=== PATIENT | male | born 1940 | race Asian ===

== ENCOUNTER → 2024-01-30 | Outpatient (REF) | payer OTHER | LOC: M SFHCPLAZ 21:48 | DX: E11.69 Type 2 diabetes mellitus with other specified complication (principal); Z86.39 Personal history of other endocrine, nutritional and metabolic disease; N18.32 Chronic kidney disease, stage 3b; E78.5 Hyperlipidemia, unspecified ==

== ENCOUNTER → 2024-01-31 | Outpatient (CLI) | payer OTHER ==
[2024-01-31 09:25] LABS: BASO # 0.1 10^3/uL (0.0-0.2); BASO % 0.5 % (0.0-1.0); EOS # 0.1 10^3/uL (0.0-0.5); EOS % 1.4 % (0.0-3.0); HEMATOCRIT 35.6 % (42.0-52.0); HEMOGLOBIN 11.1 g/dl (13.5-17.5); LYMPH # 2.5 10^3/uL (1.5-5.0); LYMPH % 26.9 % (24.0-44.0); MEAN CORPUSCULAR HEMOGLOBIN 30.2 pg (27.0-33.0); MEAN CORPUSCULAR HGB CONC 31.2 g/dl (32.0-36.5); MONO # 0.8 10^3/uL (0.0-0.8); MONO % 8.9 % (2.0-8.0); NEUTROPHILS # 5.6 10^3/uL (1.5-8.5); NEUTROPHILS % 61.3 % (36.0-66.0); PLATELET COUNT, AUTOMATED 363 10^3/uL (150-450); RED BLOOD COUNT 3.67 10^6/uL (4.30-6.10); WHITE BLOOD COUNT 9.2 10^3/uL (4.0-10.0)
[2024-01-31 09:51] LABS: ALBUMIN 2.8 G/DL (3.2-5.2); BILIRUBIN,TOTAL 0.5 MG/DL (0.3-1.2); CALCIUM LEVEL 9.7 MG/DL (8.3-10.6); CHOLESTEROL RISK RATIO 3.26 (<5); CREATININE FOR GFR 1.34 MG/DL (0.70-1.30); GLOMERULAR FILTRATION RATE 53.9 (>35); HDL CHOLESTEROL 41.1 MG/DL (>40); LDL CHOLESTEROL 68.9 MG/DL (<100); NON-HDL-C 92.9 MG/DL; POTASSIUM SERUM 4.7 MMOL/L (3.5-5.1); TOTAL PROTEIN 6.8 G/DL (5.7-8.2)
[2024-01-31 10:03] LABS: HEMOGLOBIN A1c 6.4 % (4.0-6.0)
== END ==
LOC: M LAB 08:38
DX: E11.69 Type 2 diabetes mellitus with other specified complication (principal); E78.5 Hyperlipidemia, unspecified; N18.32 Chronic kidney disease, stage 3b; Z86.39 Personal history of other endocrine, nutritional and metabolic disease

== ENCOUNTER → 2024-02-27 | Outpatient (CLI) | payer OTHER ==
[~2024-02-27] MED LIST: AMOX875T2 PO; ATOR40TA75 PO; BETA5OI TOP; CLAR10CA3 PO; DEXL60CA13; DICL1PAT6; FINA5TAB2; FINA5TAB2 PO; FLOM0.4C39 PO; FURO20TA2 PO; ISOVUE-300 61% 100ML VIAL As Ordered ONE; LIDOCAINE 1% MDV 20ML VIAL As Ordered ONE; LISI5TAB11 PO; METF500T13 PO; METO1TAB32 PO; MIDAZOLAM INJ 2MG/2ML VIAL As Ordered ONE; NS 1,000 ML IV SCH; THERTAB52 PO; TREL1AER; URSO300C3 PO; VELT1POW PO; VENTAER; ZITHTAB PO; ZYRTTAB8 PO; ceFAZolin 2 GM/D5W 50 ML IV BAG As Ordered ONE; ceFAZolin SOD 2 GM in IV 1 EA IV ONE; fentaNYL 100 MCG/2 ML INJECTION As Ordered ONE
[2024-02-27 12:20] VITALS: TEMP 97.1
[2024-02-27 14:45] VITALS: BP 125/58; O2SAT 96
== END ==
LOC: M IRPRO 12:04
PROVIDERS: ATTEND Specialist
DX: C34.92 Malignant neoplasm of unspecified part of left bronchus or lung (principal)
CPT/HCPCS: 36561; 99152; 99153; C1894; J0690; J1642; J2250; J3010; Q9967

== ENCOUNTER 2024-02-29 12:45 | Emergency (ER) | payer OTHER ==
[~2024-02-29] VITALS: Ht 157.5 cm; Wt 73.0 kg
[~2024-02-29 12:45] MED LIST changes: -AMOX875T2 PO; -ISOVUE-300 61% 100ML VIAL As Ordered ONE; -LIDOCAINE 1% MDV 20ML VIAL As Ordered ONE; -MIDAZOLAM INJ 2MG/2ML VIAL As Ordered ONE; -NS 1,000 ML IV SCH; -ZITHTAB PO; -ceFAZolin 2 GM/D5W 50 ML IV BAG As Ordered ONE; -ceFAZolin SOD 2 GM in IV 1 EA IV ONE; -fentaNYL 100 MCG/2 ML INJECTION As Ordered ONE
[2024-02-29] MEDS: ACETAMINOPHEN 500 MG TAB PO ONE (14:12)
[2024-02-29 14:31] LABS: BASO % 0.4 % (0.0-1.0); EOS # 0.1 10^3/uL (0.0-0.5); HEMATOCRIT 35.8 % (42.0-52.0); HEMOGLOBIN 11.1 g/dl (13.5-17.5); LYMPH # 2.1 10^3/uL (1.5-5.0); MEAN CORPUSCULAR HEMOGLOBIN 30.3 pg (27.0-33.0); MEAN CORPUSCULAR VOLUME 97.8 fl (80.0-96.0); MONO # 0.7 10^3/uL (0.0-0.8); MONO % 9.5 % (2.0-8.0); NEUTROPHILS # 3.9 10^3/uL (1.5-8.5); NEUTROPHILS % 57.7 % (36.0-66.0); PLATELET COUNT, AUTOMATED 194 10^3/uL (150-450); RED BLOOD COUNT 3.66 10^6/uL (4.30-6.10); WHITE BLOOD COUNT 6.8 10^3/uL (4.0-10.0)
[2024-02-29 14:50] LABS: BLOOD UREA NITROGEN 14 MG/DL (9-23); CALCIUM LEVEL 8.9 MG/DL (8.3-10.6); CARBON DIOXIDE LEVEL 29 MMOL/L (20-31); CHLORIDE LEVEL 109 MMOL/L (98-107); CREATININE FOR GFR 1.07 MG/DL (0.70-1.30); GLOMERULAR FILTRATION RATE > 60.0 (>35); GLUCOSE, FASTING 157 MG/DL (74-106); POTASSIUM SERUM 5.3 MMOL/L (3.5-5.1); SODIUM LEVEL 141 MMOL/L (136-145)
[2024-02-29] MEDS ORDERED: AMOX875T2 PO (16:38)
[2024-02-29] MEDS ORDERED: ZITHTAB PO (16:38)
[2024-02-29 17:00] VITALS: BP 123/70; TEMP 96.8; O2SAT 94
== END 2024-02-29 17:02 | disposition home or self-care (01) ==
LOC: M ED 12:45
DX: J18.9 Pneumonia, unspecified organism (principal); G89.18 Other acute postprocedural pain; E87.5 Hyperkalemia; E11.9 Type 2 diabetes mellitus without complications; I10 Essential (primary) hypertension; C34.90 Malignant neoplasm of unspecified part of unspecified bronchus or lung; Z79.52 Long term (current) use of systemic steroids; Z79.2 Long term (current) use of antibiotics; Z79.02 Long term (current) use of antithrombotics/antiplatelets; Z79.4 Long term (current) use of insulin; Z79.899 Other long term (current) drug therapy

== ENCOUNTER → 2024-03-04 | Outpatient (POV) | payer OTHER ==
[~2024-03-04] VITALS: Ht 157.5 cm; Wt 68.1 kg
[~2024-03-04] MED LIST changes: +AMBI5TAB PO; +AMOX875T2 PO; +GABA-284 PO; +HYDR-643; +IBUP200C89 PO; +LIDO30CR18 TOP; +ONDA-284 PO; +PROC10TA5 PO; +ZITHTAB PO
[2024-03-04 16:13] VITALS: BP 129/68; O2SAT 98
== END ==
LOC: M IRPOV 16:04
PROVIDERS: ATTEND Radiology Diagnostic Radiology
DX: Z45.1 Encounter for adjustment and management of infusion pump (principal); C34.90 Malignant neoplasm of unspecified part of unspecified bronchus or lung; Z79.84 Long term (current) use of oral hypoglycemic drugs; Z79.899 Other long term (current) drug therapy; Z88.8 Allergy status to other drugs, medicaments and biological substances

== ENCOUNTER → 2024-03-10 | Outpatient (CLI) | payer OTHER ==
[~2024-03-10] MED LIST changes: -AMBI5TAB PO; -GABA-284 PO; -HYDR-643; -IBUP200C89 PO; +ISOVUE-370 76% 100ML VIAL As Ordered ONE; -LIDO30CR18 TOP; -ONDA-284 PO; -PROC10TA5 PO
== END ==
LOC: M RAD 13:29
PROVIDERS: ATTEND Specialist
DX: C34.90 Malignant neoplasm of unspecified part of unspecified bronchus or lung (principal); Z90.2 Acquired absence of lung [part of]
CPT/HCPCS: 71260; Q9967

== ENCOUNTER → 2024-04-02 | Outpatient (REF) | payer OTHER ==
[~2024-04-02] MED LIST changes: +HYDR-643; -ISOVUE-370 76% 100ML VIAL As Ordered ONE; +LIDO30CR18 TOP; +ONDA-284 PO; +PROC10TA5 PO
== END ==
LOC: M SFHCPLAZ 13:08
PROVIDERS: ATTEND Family Medicine
DX: L57.0 Actinic keratosis (principal)

== ENCOUNTER → 2024-04-14 | Outpatient (CLI) | payer OTHER | LOC: M RAD 09:39 | PROVIDERS: ATTEND Specialist | DX: C34.90 Malignant neoplasm of unspecified part of unspecified bronchus or lung (principal) | CPT/HCPCS: 78306; A9503 ==

== ENCOUNTER → 2024-05-08 | Outpatient (CLI) | payer OTHER, MEDICAID ==
[~2024-05-08] VITALS: Ht 160 cm; Wt 74.7 kg
[~2024-05-08] MED LIST changes: +AMBI5TAB PO; +GABA-284 PO; +IBUP200C89 PO; +MIRT1TAB16 PO
[2024-05-08 13:28] VITALS: BP 131/74; O2SAT 95
== END ==
LOC: M PAL 12:54
PROVIDERS: ATTEND Family Medicine
DX: Z51.5 Encounter for palliative care (principal); C34.31 Malignant neoplasm of lower lobe, right bronchus or lung; R52 Pain, unspecified; R11.0 Nausea; Z79.84 Long term (current) use of oral hypoglycemic drugs; Z79.899 Other long term (current) drug therapy; Z79.51 Long term (current) use of inhaled steroids; Z92.21 Personal history of antineoplastic chemotherapy

== ENCOUNTER 2024-05-19 15:40 | Emergency (ER) | payer OTHER, MEDICAID ==
[~2024-05-19] VITALS: Ht 157.5 cm; Wt 76.8 kg
[~2024-05-19 15:40] MED LIST changes: +GABA-1171 PO
[2024-05-19 16:55] LABS: BASO % 0.2 % (0.0-1.0); HEMATOCRIT 30.6 % (42.0-52.0); HEMOGLOBIN 9.7 g/dl (13.5-17.5); LYMPH % 6.5 % (24.0-44.0); MEAN CORPUSCULAR HEMOGLOBIN 30.4 pg (27.0-33.0); MEAN CORPUSCULAR HGB CONC 31.7 g/dl (32.0-36.5); MEAN CORPUSCULAR VOLUME 95.9 fl (80.0-96.0); MONO # 0.9 10^3/uL (0.0-0.8); MONO % 5.9 % (2.0-8.0); NEUTROPHILS # 12.5 10^3/uL (1.5-8.5); NEUTROPHILS % 85.2 % (36.0-66.0); PLATELET COUNT, AUTOMATED 168 10^3/uL (150-450); RED BLOOD COUNT 3.19 10^6/uL (4.30-6.10); WHITE BLOOD COUNT 14.7 10^3/uL (4.0-10.0)
[2024-05-19 17:11] LABS: INR 0.91; PARTIAL THROMBOPLASTIN TIME 30.1 SECONDS (24.8-34.2); PROTHROMBIN TIME 12.6 SECONDS (12.5-14.5)
[2024-05-19 17:24] LABS: LIPASE 43 U/L (12-53)
[2024-05-19 17:26] LABS: ALBUMIN 2.7 G/DL (3.2-5.2); ALKALINE PHOSPHATASE 137 U/L (40-129); ALT/SGPT 12 U/L (7.0-40); AST/SGOT 9 U/L (<34); BILIRUBIN,DIRECT < 0.1 MG/DL (<0.4); BILIRUBIN,TOTAL 0.3 MG/DL (0.3-1.2); BLOOD UREA NITROGEN 26 MG/DL (9-23); CALCIUM LEVEL 8.5 MG/DL (8.3-10.6); CARBON DIOXIDE LEVEL 24 MMOL/L (20-31); CHLORIDE LEVEL 106 MMOL/L (98-107); CREATININE FOR GFR 1.17 MG/DL (0.70-1.30); GLOMERULAR FILTRATION RATE > 60.0 (>35); GLUCOSE, FASTING 241 MG/DL (74-106); POTASSIUM SERUM 5.2 MMOL/L (3.5-5.1); SODIUM LEVEL 139 MMOL/L (136-145); TOTAL PROTEIN 6.3 G/DL (5.7-8.2)
[2024-05-19] MEDS ORDERED: ISOVUE-370 76% 100ML VIAL As Ordered ONE (17:48)
[2024-05-19] MEDS: IPRATROPIUM 0.5MG/ALBUTEROL 2.5MG INH SOL UD 3ML (DUONEB) NEB ONE (18:05)
[2024-05-19] MEDS: NS 500 ML IV ONE (18:15)
[2024-05-19] MEDS ORDERED: TREL1AER PO (19:54)
[2024-05-19] MEDS ORDERED: GABAPENTIN 400MG CAP PO ONE (19:55)
[2024-05-19 19:56] VITALS: O2SAT 92
[2024-05-19] MEDS ORDERED: PRED20TA PO (20:07)
[2024-05-19 20:15] VITALS: BP 118/65; TEMP 97.7; O2SAT 95
== END 2024-05-19 20:15 | disposition home or self-care (01) ==
LOC: M ED 15:40
DX: J44.1 Chronic obstructive pulmonary disease with (acute) exacerbation (principal); R04.2 Hemoptysis; C34.90 Malignant neoplasm of unspecified part of unspecified bronchus or lung; D64.9 Anemia, unspecified; I70.0 Atherosclerosis of aorta; E78.5 Hyperlipidemia, unspecified; K21.9 Gastro-esophageal reflux disease without esophagitis; E11.9 Type 2 diabetes mellitus without complications; N18.9 Chronic kidney disease, unspecified; I10 Essential (primary) hypertension; Z79.52 Long term (current) use of systemic steroids; Z79.02 Long term (current) use of antithrombotics/antiplatelets; Z79.4 Long term (current) use of insulin; Z79.899 Other long term (current) drug therapy; Z92.21 Personal history of antineoplastic chemotherapy
CPT/HCPCS: 71046; 71275; 80048; 80076; 83690; 83880; 85025; 85610; 85730; 87486; 87581; 87633; 87798; 94640; 96360; 99284; Q9967

== ENCOUNTER → 2024-06-02 | Outpatient (CLI) | payer OTHER ==
[~2024-06-02] MED LIST changes: +ISOVUE-370 76% 100ML VIAL As Ordered ONE; +PRED20TA PO; +TREL1AER PO
== END ==
LOC: M RAD 15:58
PROVIDERS: ATTEND Nurse Practitioner Women's Health
DX: C34.90 Malignant neoplasm of unspecified part of unspecified bronchus or lung (principal); J43.9 Emphysema, unspecified
CPT/HCPCS: 71260; 74177; Q9967

== ENCOUNTER → 2024-06-15 | Outpatient (REF) | payer OTHER, MEDICAID ==
[~2024-06-15] MED LIST changes: -ISOVUE-370 76% 100ML VIAL As Ordered ONE; +LEVO1TAB39 PO; +OLAN5ZYD PO; +VENTAER OR
[2024-06-15 18:06] LABS: APPEARANCE, URINE CLOUDY (CLEAR); BACTERIA, URINE AUTO NEGATIVE (NEGATIVE); BILIRUBIN, URINE AUTO NEGATIVE (NEGATIVE); BLOOD, URINE BLOOD NEGATIVE (NEGATIVE); COLOR, URINE AMBER (YELLOW); GLUCOSE, URINE (UA) AUTO NEGATIVE (NEGATIVE); KETONE, URINE AUTO NEGATIVE (NEGATIVE); LEUKOCYTE ESTERASE, URINE AUTO NEGATIVE (NEGATIVE); NITRITE, URINE AUTO NEGATIVE (NEGATIVE); PROTEIN, URINE AUTO NEGATIVE (NEGATIVE); RBC, URINE AUTO 1 /HPF (0-3); SPECIFIC GRAVITY URINE AUTO 1.016 (1.002-1.035); SQUAMOUS EPITHELIAL CELL UR AU 1 /HPF (0-6); UROBILINOGEN, URINE AUTO 0.2 mg/dL (0.0-2.0); WBC, URINE AUTO 1 /HPF (0-3)
== END ==
LOC: M SMT 17:07
PROVIDERS: ATTEND Specialist
DX: N39.41 Urge incontinence (principal)

== ENCOUNTER → 2024-06-18 | Outpatient (CLI) | payer OTHER, MEDICAID ==
[~2024-06-18] VITALS: Ht 160 cm; Wt 76.6 kg
[2024-06-18 14:17] VITALS: BP 127/72; O2SAT 93
== END ==
LOC: M PAL 13:27
PROVIDERS: ATTEND Family Medicine
DX: C34.31 Malignant neoplasm of lower lobe, right bronchus or lung (principal); Z92.21 Personal history of antineoplastic chemotherapy; Z79.899 Other long term (current) drug therapy; J44.9 Chronic obstructive pulmonary disease, unspecified

== ENCOUNTER → 2024-07-21 | Outpatient (CLI) | payer OTHER, MEDICAID | LOC: M PLARAD 09:11 | PROVIDERS: ATTEND Internal Medicine Medical Oncology | DX: C34.31 Malignant neoplasm of lower lobe, right bronchus or lung (principal) | CPT/HCPCS: 78815; A9552 ==

== ENCOUNTER → 2024-07-29 | Outpatient (CLI) | payer OTHER, MEDICAID ==
[~2024-07-29] VITALS: Ht 160 cm; Wt 75.0 kg
[~2024-07-29] MED LIST changes: +MORP20SO PO
[2024-07-29 14:10] VITALS: BP 135/75; O2SAT 94
== END ==
LOC: M PAL 13:47
PROVIDERS: ATTEND Physician Assistant
DX: Z51.5 Encounter for palliative care (principal); C34.31 Malignant neoplasm of lower lobe, right bronchus or lung; Z92.25 Personal history of immunosuppression therapy; Z79.891 Long term (current) use of opiate analgesic; K59.00 Constipation, unspecified; R11.0 Nausea; Z79.899 Other long term (current) drug therapy; Z79.02 Long term (current) use of antithrombotics/antiplatelets

== ENCOUNTER → 2024-08-11 | Outpatient (CLI) | payer OTHER, MEDICAID ==
[~2024-08-11] MED LIST changes: +ISOVUE-370 76% 100ML VIAL As Ordered ONE
== END ==
LOC: M RAD 08:11
PROVIDERS: ATTEND Nurse Practitioner Women's Health
DX: C34.91 Malignant neoplasm of unspecified part of right bronchus or lung (principal); Z90.2 Acquired absence of lung [part of]
CPT/HCPCS: 71260; Q9967

== ENCOUNTER → 2024-08-12 | Outpatient (CLI) | payer OTHER, MEDICAID ==
[~2024-08-12] VITALS: Ht 160 cm; Wt 73.5 kg
[~2024-08-12] MED LIST changes: -ISOVUE-370 76% 100ML VIAL As Ordered ONE
[2024-08-12 14:06] VITALS: BP 136/78; O2SAT 94
== END ==
LOC: M PAL 13:49
PROVIDERS: ATTEND Physician Assistant
DX: Z51.5 Encounter for palliative care (principal); C34.31 Malignant neoplasm of lower lobe, right bronchus or lung; K59.00 Constipation, unspecified; R11.0 Nausea; R52 Pain, unspecified; R06.02 Shortness of breath; G62.9 Polyneuropathy, unspecified; Z79.1 Long term (current) use of non-steroidal anti-inflammatories (NSAID); Z79.51 Long term (current) use of inhaled steroids; Z79.84 Long term (current) use of oral hypoglycemic drugs; Z79.891 Long term (current) use of opiate analgesic; Z79.899 Other long term (current) drug therapy; Z92.25 Personal history of immunosuppression therapy

== ENCOUNTER → 2024-09-15 | Outpatient (CLI) | payer OTHER, MEDICAID ==
[~2024-09-15] VITALS: Ht 160 cm; Wt 74.4 kg
[~2024-09-15] MED LIST changes: -AMBI5TAB PO; -FLOM0.4C39 PO; +OLAN1TAB16 PO; +OMEP40CA4 PO; +SENN-186 PO; +TAMS-18 PO; +ZOLP-532 PO
[2024-09-15 14:43] VITALS: BP 128/84; O2SAT 94
== END ==
LOC: M PAL 14:23
PROVIDERS: ATTEND Physician Assistant
DX: Z51.5 Encounter for palliative care (principal); C34.31 Malignant neoplasm of lower lobe, right bronchus or lung; Z79.61 Long term (current) use of immunomodulator; Z79.891 Long term (current) use of opiate analgesic; Z79.899 Other long term (current) drug therapy; Z79.02 Long term (current) use of antithrombotics/antiplatelets

== ENCOUNTER → 2024-11-10 | Outpatient (CLI) | payer OTHER, MEDICAID ==
[~2024-11-10] MED LIST changes: +AZIT-12 PO; +LEVO50TA5 PO
== END ==
LOC: M EKG 14:50
PROVIDERS: ATTEND Specialist
DX: C34.90 Malignant neoplasm of unspecified part of unspecified bronchus or lung (principal)

== ENCOUNTER → 2024-11-19 | Outpatient (CLI) | payer OTHER, MEDICAID ==
[~2024-11-19] VITALS: Ht 152.4 cm; Wt 73.6 kg
[2024-11-19 11:44] VITALS: BP 134/60; O2SAT 96
== END ==
LOC: M PAL 11:24
PROVIDERS: ATTEND Physician Assistant
DX: Z51.5 Encounter for palliative care (principal); C34.31 Malignant neoplasm of lower lobe, right bronchus or lung; Z79.891 Long term (current) use of opiate analgesic; Z79.899 Other long term (current) drug therapy; Z79.84 Long term (current) use of oral hypoglycemic drugs; Z79.52 Long term (current) use of systemic steroids; Z79.02 Long term (current) use of antithrombotics/antiplatelets

== ENCOUNTER → 2024-11-23 | Outpatient (CLI) | payer OTHER, MEDICAID ==
[~2024-11-23] MED LIST changes: +ISOVUE-370 76% 100 ML VIAL ONE
== END ==
LOC: M PLAIMG 08:21
PROVIDERS: ATTEND Specialist
DX: C34.32 Malignant neoplasm of lower lobe, left bronchus or lung (principal); C34.31 Malignant neoplasm of lower lobe, right bronchus or lung; Z90.2 Acquired absence of lung [part of]; N28.1 Cyst of kidney, acquired; K80.20 Calculus of gallbladder without cholecystitis without obstruction
CPT/HCPCS: 71260; Q9967

== ENCOUNTER → 2025-01-05 | Outpatient (CLI) | payer OTHER, MEDICAID ==
[~2025-01-05] VITALS: Ht 160 cm; Wt 74.2 kg
[~2025-01-05] MED LIST changes: -ISOVUE-370 76% 100 ML VIAL ONE; +VIBE75TA
[2025-01-05 10:21] VITALS: BP 140/94; O2SAT 95
== END ==
LOC: M PAL 09:50
PROVIDERS: ATTEND Physician Assistant
DX: Z51.5 Encounter for palliative care (principal); C34.31 Malignant neoplasm of lower lobe, right bronchus or lung; Z79.891 Long term (current) use of opiate analgesic; Z79.02 Long term (current) use of antithrombotics/antiplatelets; Z79.899 Other long term (current) drug therapy; Z79.83 Long term (current) use of bisphosphonates

== ENCOUNTER 2025-01-08 09:56 | Inpatient (IN) | payer OTHER, MEDICAID ==
[~2025-01-08] VITALS: Ht 152.4 cm; Wt 71.5 kg
[~2025-01-08 09:56] MED LIST changes: -VIBE75TA; +VIBE75TA PO
[2025-01-08 10:31] LABS: VENOUS BASE EXCESS -6.0 (-2.0-2.0); VENOUS HCO3 18.0 MMOL/L (23.0-27.0); VENOUS O2 SATURATION 79.2 % (60.0-80.0); VENOUS PARTIAL PRESSURE CO2 30.9 mmHg (38.0-50.0); VENOUS PARTIAL PRESSURE O2 43.8 mmHg (30.0-50.0); VENOUS PH 7.384 UNITS (7.330-7.430); VENOUS STANDARD HCO3 19.2 MMOL/L; VENOUS TOTAL CO2 19.0 MMOL/L (24.0-28.0)
[2025-01-08 10:43] LABS: PLATELET COUNT, AUTOMATED 265 10^3/uL (150-450)
[2025-01-08 10:53] LABS: CK-MB VALUE MASS 3.5 NG/ML (<3.6)
[2025-01-08 10:55] LABS: CPK CREATINE PHOSPHOKINASE 116.0 U/L (46-171); MB/CK RELATIVE INDEX 3.01 (< OR =4)
[2025-01-08 10:56] LABS: ALT/SGPT 23.0 U/L (7.0-40); AST/SGOT 42.0 U/L (<34); CALCIUM LEVEL 9.7 MG/DL (8.3-10.6); CARBON DIOXIDE LEVEL 21.0 MMOL/L (20-31); CHLORIDE LEVEL 103.0 MMOL/L (98-107); CREATININE FOR GFR 1.48 MG/DL (0.70-1.30); GLOMERULAR FILTRATION RATE 45.8 (>35); POTASSIUM SERUM 4.2 MMOL/L (3.5-5.1); SODIUM LEVEL 141.0 MMOL/L (136-145)
[2025-01-08 11:15] LABS: BASO # 0.0 10^3/uL (0.0-0.2); BASO % 0.3 % (0.0-1.0); EOS # 0.0 10^3/uL (0.0-0.5); EOS % 0.2 % (0.0-3.0); LYMPH # 2.7 10^3/uL (1.5-5.0); LYMPH % 27.0 % (24.0-44.0); MONO # 1.5 10^3/uL (0.0-0.8); MONO % 15.6 % (2.0-8.0); NEUTROPHILS # 4.3 10^3/uL (1.5-8.5); NEUTROPHILS % 44.1 % (36.0-66.0)
[2025-01-08] MEDS ORDERED: ISOVUE-370 76% 100 ML VIAL As Ordered ONE (11:18)
[2025-01-08 13:20] LABS: CK-MB VALUE MASS 3.2 NG/ML (<3.6)
[2025-01-08 13:21] LABS: CPK CREATINE PHOSPHOKINASE 109.0 U/L (46-171); MB/CK RELATIVE INDEX 2.93 (< OR =4)
[2025-01-08] MEDS: NS 0.9% IV STA (14:28)
[2025-01-08] MEDS: [UNRECOGNIZED DRUG - OTHER] IV STA (14:28)
[2025-01-08] MEDS: CEFEPIME HCL 2 GM in DEXTROSE 5% (D5W) ADV/MINI-BAG 50 ML IV ONE (14:28)
[2025-01-08] MEDS ORDERED: GLUCOSE 4 GM CHEW PO PRN (15:30)
[2025-01-08] MEDS ORDERED: DEXTROSE 50% 50 ML SYRINGE IV PRN (15:30)
[2025-01-08] MEDS ORDERED: GLUCAGON INJ 1 MG VIAL SC PRN (15:30)
[2025-01-08] MEDS: NS (Normal Saline) 0.9% 1,000 ML IV SCH (15:52)
[2025-01-08] MEDS: LEVALBUTEROL 1.25 MG 0.5ML CONCENTRATE NEB INH SCH (16:00)
[2025-01-08] MEDS ORDERED: NALOXONE INJ 0.4 MG/1 ML VIAL IV PRN (16:10)
[2025-01-08] MEDS: MIDODRINE 5 MG TAB PO ONE (16:45)
[2025-01-08 17:30] VITALS: BP 123/75; TEMP 97.3; O2SAT 96
[2025-01-08] MEDS ORDERED: HEPARIN LOCK FLUSH 100 UNITS/ML 3 ML SYRINGE IV PRN (17:45)
[2025-01-08] MEDS ORDERED: SODIUM CHLORIDE 0.9% INJ 10 ML SYR IV PRN (17:45)
[2025-01-08] MEDS ORDERED: MED REC COMMENT (18:15)
[2025-01-08] MEDS ORDERED: HOME MED LIST COMPLETE! XX SCH (18:15)
[2025-01-08] MEDS: INSULIN LISPRO (NovoLOG) PER UNIT SC SCH ×2 (18:22→20:28)
[2025-01-08 18:44] LABS: ESTIMATED AVERAGE GLUCOSE 166.0 MG/DL (60-110)
[2025-01-08 19:00] LABS: C REACTIVE PROTEIN QUANTITATIV 7.58 MG/DL (<1.0)
[2025-01-08 19:05] LABS: ALT/SGPT 22.0 U/L (7.0-40); AST/SGOT 41.0 U/L (<34); CALCIUM LEVEL 9.3 MG/DL (8.3-10.6); CARBON DIOXIDE LEVEL 24.0 MMOL/L (20-31); CHLORIDE LEVEL 103.0 MMOL/L (98-107); CK-MB VALUE MASS 5.0 NG/ML (<3.6); CPK CREATINE PHOSPHOKINASE 131.0 U/L (46-171); CREATININE FOR GFR 1.44 MG/DL (0.70-1.30); GLOMERULAR FILTRATION RATE 47.3 (>35); MAGNESIUM LEVEL 1.3 MG/DL (1.8-2.4); MB/CK RELATIVE INDEX 3.81 (< OR =4); POTASSIUM SERUM 4.6 MMOL/L (3.5-5.1); SODIUM LEVEL 139.0 MMOL/L (136-145)
[2025-01-08 19:57] VITALS: BP 100/54; TEMP 97.7; O2SAT 94
[2025-01-08] MEDS: TAMSULOSIN 0.4 MG CAP PO SCH (20:35)
[2025-01-08] MEDS: ATORVASTATIN 20 MG TAB PO SCH (20:36)
[2025-01-08] MEDS: BUDESONIDE 0.25 MG/2 ML INHALATION SUSPENSION INH SCH (20:46)
[2025-01-08 20:53] LABS: CK-MB VALUE MASS 5.7 NG/ML (<3.6)
[2025-01-08 20:54] LABS: CPK CREATINE PHOSPHOKINASE 140.0 U/L (46-171); MB/CK RELATIVE INDEX 4.07 (< OR =4)
[2025-01-08] MEDS: LEVALBUTEROL 1.25 MG 0.5ML CONCENTRATE NEB INH PRN (22:35)
[2025-01-08] MEDS: RAMELTEON 8 MG TAB PO PRN (23:03)
[2025-01-09 03:47] VITALS: BP 118/96; TEMP 97.7; O2SAT 95
[2025-01-09 04:40] LABS: BASO # 0.0 10^3/uL (0.0-0.2); BASO % 0.2 % (0.0-1.0); EOS # 0.0 10^3/uL (0.0-0.5); EOS % 0.1 % (0.0-3.0); LYMPH # 1.6 10^3/uL (1.5-5.0); LYMPH % 11.0 % (24.0-44.0); MONO # 1.9 10^3/uL (0.0-0.8); MONO % 13.0 % (2.0-8.0); NEUTROPHILS # 9.2 10^3/uL (1.5-8.5); NEUTROPHILS % 64.1 % (36.0-66.0); PLATELET COUNT, AUTOMATED 247 10^3/uL (150-450)
[2025-01-09 05:00] LABS: CK-MB VALUE MASS 7.2 NG/ML (<3.6)
[2025-01-09 05:01] LABS: CALCIUM LEVEL 8.8 MG/DL (8.3-10.6); CARBON DIOXIDE LEVEL 24.0 MMOL/L (20-31); CHLORIDE LEVEL 103.0 MMOL/L (98-107); CREATININE FOR GFR 1.56 MG/DL (0.70-1.30); GLOMERULAR FILTRATION RATE 43.0 (>35); POTASSIUM SERUM 4.0 MMOL/L (3.5-5.1); SODIUM LEVEL 138.0 MMOL/L (136-145)
[2025-01-09 05:02] LABS: CPK CREATINE PHOSPHOKINASE 151.0 U/L (46-171); MB/CK RELATIVE INDEX 4.76 (< OR =4)
[2025-01-09] MEDS: LEVOTHYROXINE 50 MCG TABLET (0.05 MG) PO SCH (06:09)
[2025-01-09] MEDS: TIOTROPIUM BROM 2.5MCG/ACTUATION 4GM INH INH SCH (07:32)
[2025-01-09] MEDS: CETIRIZINE 10 MG TAB PO SCH (08:34)
[2025-01-09] MEDS: FINASTERIDE 5 MG TAB PO SCH (08:34)
[2025-01-09] MEDS: OMEPRAZOLE 20MG CAP PO SCH (08:35)
[2025-01-09] MEDS: HEPARIN LOCK FLUSH 100 UNITS/ML 3 ML SYRINGE IV SCH (08:42)
[2025-01-09] MEDS: SODIUM CHLORIDE 0.9% INJ 10 ML SYR IV SCH (08:42)
[2025-01-09] MEDS ORDERED: LACTULOSE 20 GM/30 ML SYRUP UDC PO PRN (09:05)
[2025-01-09] MEDS ORDERED: SENNOSIDES/DOCUSATE SODIUM 8.6 MG/50MG TAB PO PRN (09:05)
[2025-01-09 11:23] VITALS: BP 94/62; TEMP 98; O2SAT 96
[2025-01-09] MEDS: MIDODRINE 5 MG TAB PO SCH (13:45)
[2025-01-09] MEDS: cefTRIAXone SOD 1 GM in DEXTROSE 5% (D5W) ADV/MINI-BAG 50 ML IV SCH (13:45)
[2025-01-09 19:37] VITALS: BP 100/63; TEMP 97.3; O2SAT 95
[2025-01-10 03:32] VITALS: BP 101/61; TEMP 97.7; O2SAT 95
[2025-01-10 07:53] LABS: PLATELET COUNT, AUTOMATED 195 10^3/uL (150-450)
[2025-01-10 08:26] LABS: CK-MB VALUE MASS 7.3 NG/ML (<3.6)
[2025-01-10 08:38] LABS: C REACTIVE PROTEIN QUANTITATIV 2.79 MG/DL (<1.0); CALCIUM LEVEL 8.7 MG/DL (8.3-10.6); CARBON DIOXIDE LEVEL 25.0 MMOL/L (20-31); CHLORIDE LEVEL 104.0 MMOL/L (98-107); CPK CREATINE PHOSPHOKINASE 81.0 U/L (46-171); CREATININE FOR GFR 1.53 MG/DL (0.70-1.30); GLOMERULAR FILTRATION RATE 44.0 (>35); MB/CK RELATIVE INDEX 9.01 (< OR =4); POTASSIUM SERUM 4.3 MMOL/L (3.5-5.1); SODIUM LEVEL 139.0 MMOL/L (136-145)
[2025-01-10 08:41] LABS: LYMPHOCYTES 6 % (16-44); METAMYELOCYTES 8 % (0-0); MONOCYTES 15 % (0-5); MYELOCYTES 4 % (0-0); NEUTROPHILS 64 % (28-66); PLATELET ESTIMATE NORMAL (NORMAL)
[2025-01-10 08:50] LABS: ERYTHROCYTE SEDIMENTATION RATE 20 mm/hr (0-20)
[2025-01-10] MEDS: MORPHINE SULFATE ORAL SOLN 10 MG/5 ML SL PRN (09:06)
[2025-01-10 12:16] VITALS: BP 102/61; TEMP 97.9; O2SAT 95
[2025-01-10] MEDS: SODIUM CHLORIDE 0.9% INJ 10 ML SYR IV PRN (14:23)
[2025-01-10] MEDS: HEPARIN LOCK FLUSH 100 UNITS/ML 3 ML SYRINGE IV PRN (14:23)
[2025-01-10 20:29] VITALS: BP 102/62; TEMP 97.5; O2SAT 91
[2025-01-11 05:45] VITALS: BP 104/60; TEMP 97.5; O2SAT 94
[2025-01-11 06:50] LABS: BASO # 0.0 10^3/uL (0.0-0.2); BASO % 0.1 % (0.0-1.0); EOS # 0.0 10^3/uL (0.0-0.5); EOS % 0.0 % (0.0-3.0); LYMPH # 2.5 10^3/uL (1.5-5.0); LYMPH % 6.2 % (24.0-44.0); MONO % 7.1 % (2.0-8.0); NEUTROPHILS # 24.9 10^3/uL (1.5-8.5); NEUTROPHILS % 61.8 % (36.0-66.0); PLATELET COUNT, AUTOMATED 172 10^3/uL (150-450)
[2025-01-11 06:54] LABS: MONO # 2.9 10^3/uL (0.0-0.8)
[2025-01-11 12:00] VITALS: BP 123/64; TEMP 97.7; O2SAT 97
[2025-01-11 20:56] VITALS: BP 115/61; TEMP 97.9; O2SAT 93
[2025-01-12 05:26] VITALS: BP 114/62; TEMP 97.5; O2SAT 94
[2025-01-12 06:34] LABS: BASO # 0.1 10^3/uL (0.0-0.2); BASO % 0.2 % (0.0-1.0); EOS # 0.0 10^3/uL (0.0-0.5); EOS % 0.0 % (0.0-3.0); LYMPH # 1.2 10^3/uL (1.5-5.0); LYMPH % 3.6 % (24.0-44.0); MONO # 2.2 10^3/uL (0.0-0.8); MONO % 6.7 % (2.0-8.0); NEUTROPHILS # 18.9 10^3/uL (1.5-8.5); NEUTROPHILS % 57.1 % (36.0-66.0); PLATELET COUNT, AUTOMATED 148 10^3/uL (150-450)
[2025-01-12 06:52] LABS: CALCIUM LEVEL 8.3 MG/DL (8.3-10.6); CARBON DIOXIDE LEVEL 28.0 MMOL/L (20-31); CHLORIDE LEVEL 106.0 MMOL/L (98-107); CREATININE FOR GFR 1.33 MG/DL (0.70-1.30); GLOMERULAR FILTRATION RATE 52.1 (>35); POTASSIUM SERUM 4.6 MMOL/L (3.5-5.1); SODIUM LEVEL 142.0 MMOL/L (136-145)
[2025-01-12 11:53] VITALS: BP 109/45; TEMP 97.9; O2SAT 92
[2025-01-12 19:52] VITALS: BP 115/64; TEMP 97.3; O2SAT 97
[2025-01-12] MEDS: ACETAMINOPHEN 500 MG TAB PO PRN (20:16)
[2025-01-13 03:25] VITALS: BP 107/45; TEMP 98.1; O2SAT 91
[2025-01-13 06:48] LABS: PLATELET COUNT, AUTOMATED 104 10^3/uL (150-450)
[2025-01-13 07:21] LABS: CALCIUM LEVEL 8.5 MG/DL (8.3-10.6); CARBON DIOXIDE LEVEL 28.0 MMOL/L (20-31); CHLORIDE LEVEL 105.0 MMOL/L (98-107); CREATININE FOR GFR 1.25 MG/DL (0.70-1.30); GLOMERULAR FILTRATION RATE 56.1 (>35); POTASSIUM SERUM 4.6 MMOL/L (3.5-5.1); SODIUM LEVEL 140.0 MMOL/L (136-145)
[2025-01-13 07:59] LABS: LYMPHOCYTES 9 % (16-44); METAMYELOCYTES 4 % (0-0); MONOCYTES 8 % (0-5); MYELOCYTES 7 % (0-0); NEUTROPHILS 66 % (28-66)
[2025-01-13 08:00] LABS: PLATELET ESTIMATE NORMAL (NORMAL)
[2025-01-13 12:38] VITALS: TEMP 97.9; O2SAT 97
[2025-01-13] MEDS: LanTUS (INSULIN GLARGINE INJ) 1 UNITS/0.01 ML SC ONE ×2 (12:41→14:24)
[2025-01-13] MEDS ORDERED: PRED10TA2 PO (14:36)
[2025-01-13] MEDS ORDERED: ALBU2.5V10 NEB (14:37)
[2025-01-13 15:28] VITALS: BP 115/66
[2025-01-13] MEDS ORDERED: INSULIN LISPRO (NovoLOG) PER UNIT SC SCH ×2 (17:30)
[2025-01-14] MEDS ORDERED: LanTUS (INSULIN GLARGINE INJ) 1 UNITS/0.01 ML SC SCH (09:00)
[2025-01-14] MEDS ORDERED: OLAN1TAB20 PO (15:30)
[2025-01-14] MEDS ORDERED: MORP20SO PO (15:35)
== END 2025-01-13 17:21 | disposition home health service (06) | DRG 190 ==
LOC: M ED 09:56 → EDSEX 09:56 → EDBD 09:56 → M ED INP 15:23 → M MSPAV 16:55
PROVIDERS: ADMIT General Practice; ATTEND General Practice
DX: J44.1 Chronic obstructive pulmonary disease with (acute) exacerbation (principal); I21.A1 Myocardial infarction type 2; D61.811 Other drug-induced pancytopenia; C34.90 Malignant neoplasm of unspecified part of unspecified bronchus or lung; N17.9 Acute kidney failure, unspecified; J98.11 Atelectasis; E87.20 Acidosis, unspecified; E03.9 Hypothyroidism, unspecified; E11.22 Type 2 diabetes mellitus with diabetic chronic kidney disease; I12.9 Hypertensive chronic kidney disease with stage 1 through stage 4 chronic kidney disease, or unspecified chronic kidney disease; N18.9 Chronic kidney disease, unspecified; I48.91 Unspecified atrial fibrillation; I25.10 Atherosclerotic heart disease of native coronary artery without angina pectoris; J84.10 Pulmonary fibrosis, unspecified; E78.5 Hyperlipidemia, unspecified; R00.0 Tachycardia, unspecified; M54.50 Low back pain, unspecified; K21.9 Gastro-esophageal reflux disease without esophagitis; N40.0 Benign prostatic hyperplasia without lower urinary tract symptoms; G89.29 Other chronic pain; Z92.21 Personal history of antineoplastic chemotherapy; I44.0 Atrioventricular block, first degree; Z79.899 Other long term (current) drug therapy; Z79.890 Hormone replacement therapy

== ENCOUNTER → 2025-01-25 | Outpatient (CLI) | payer OTHER, MEDICAID ==
[~2025-01-25] MED LIST changes: +ALBU2.5V10 NEB; +LIDOCAINE 1% MDV 20 ML VIAL As Ordered ONE; +MED REC COMMENT; +MIDAZOLAM INJ 2 MG/2 ML VIAL IV PRN; +OLAN1TAB20 PO; +PRED10TA2 PO
[2025-01-25 10:58] VITALS: TEMP 97.8
[2025-01-25] MEDS: NS (Normal Saline) 0.9% 1,000 ML IV SCH (12:49)
[2025-01-25] MEDS: ceFAZolin SODIUM 2 GM in DEXTROSE 5% (D5W) ADV/MINI-BAG 50 ML IV ONE (12:49)
[2025-01-25] MEDS: LIDOCAINE 1% MDV 20 ML VIAL SC SCH (12:50)
[2025-01-25 13:05] VITALS: BP 127/58; O2SAT 94
== END ==
LOC: M IRPRO 10:25
PROVIDERS: ATTEND Specialist
DX: C34.90 Malignant neoplasm of unspecified part of unspecified bronchus or lung (principal)
CPT/HCPCS: 36590; J0688

== ENCOUNTER → 2025-01-26 | Outpatient (CLI) | payer OTHER, MEDICAID ==
[~2025-01-26] MED LIST changes: +CETI-25 PO; -LIDOCAINE 1% MDV 20 ML VIAL As Ordered ONE; -MIDAZOLAM INJ 2 MG/2 ML VIAL IV PRN; +REST0.05 OD
== END ==
LOC: M PAL 11:21
PROVIDERS: ATTEND Physician Assistant
DX: Z51.5 Encounter for palliative care (principal); C34.31 Malignant neoplasm of lower lobe, right bronchus or lung; Z79.891 Long term (current) use of opiate analgesic; Z79.02 Long term (current) use of antithrombotics/antiplatelets; Z79.899 Other long term (current) drug therapy; Z79.84 Long term (current) use of oral hypoglycemic drugs; Z79.83 Long term (current) use of bisphosphonates

== ENCOUNTER 2025-02-05 13:09 | Inpatient (IN) | payer OTHER, MEDICAID ==
[~2025-02-05] VITALS: Ht 152.4 cm; Wt 69.1 kg
[~2025-02-05 13:09] MED LIST changes: -CETI-25 PO; -REST0.05 OD
[2025-02-05 14:31] LABS: VENOUS BASE EXCESS -1.4 (-2.0-2.0); VENOUS HCO3 23.9 MMOL/L (23.0-27.0); VENOUS O2 SATURATION 96.1 % (60.0-80.0); VENOUS PARTIAL PRESSURE CO2 42.4 mmHg (38.0-50.0); VENOUS PARTIAL PRESSURE O2 89.0 mmHg (30.0-50.0); VENOUS PH 7.369 UNITS (7.330-7.430); VENOUS STANDARD HCO3 23.3 MMOL/L; VENOUS TOTAL CO2 25.2 MMOL/L (24.0-28.0)
[2025-02-05 14:37] LABS: BASO # 0.0 10^3/uL (0.0-0.2); BASO % 0.5 % (0.0-1.0); EOS # 0.2 10^3/uL (0.0-0.5); EOS % 2.4 % (0.0-3.0); LYMPH # 1.0 10^3/uL (1.5-5.0); LYMPH % 13.6 % (24.0-44.0); MONO # 0.4 10^3/uL (0.0-0.8); MONO % 6.0 % (2.0-8.0); NEUTROPHILS # 5.7 10^3/uL (1.5-8.5); NEUTROPHILS % 77.0 % (36.0-66.0); PLATELET COUNT, AUTOMATED 283 10^3/uL (150-450)
[2025-02-05] MEDS: IPRATROPIUM 0.5 MG/ALBUTEROL 2.5 MG INH SOL UD 3 ML NEB PRN (15:12)
[2025-02-05 15:52] LABS: CK-MB VALUE MASS 1.2 NG/ML (<3.6); CPK CREATINE PHOSPHOKINASE 72.0 U/L (46-171); MB/CK RELATIVE INDEX 1.66 (< OR =4)
[2025-02-05 16:24] LABS: INR 0.92
[2025-02-05 16:27] LABS: CPK CREATINE PHOSPHOKINASE 23.0 U/L (46-171)
[2025-02-05 16:32] LABS: ALT/SGPT 12.0 U/L (7.0-40); AST/SGOT 15.0 U/L (<34); CALCIUM LEVEL 8.5 MG/DL (8.3-10.6); CARBON DIOXIDE LEVEL 24.0 MMOL/L (20-31); CHLORIDE LEVEL 106.0 MMOL/L (98-107); CK-MB VALUE MASS 1.9 NG/ML (<3.6); CREATININE FOR GFR 1.3 MG/DL (0.70-1.30); GLOMERULAR FILTRATION RATE 53.5 (>35); MAGNESIUM LEVEL 1.2 MG/DL (1.8-2.4); MB/CK RELATIVE INDEX 8.26 (< OR =4); POTASSIUM SERUM 4.6 MMOL/L (3.5-5.1); SODIUM LEVEL 140.0 MMOL/L (136-145)
[2025-02-05] MEDS: MAG SULF 1GM/100ML (MAG RUN) 1 GM in IV 1 EA IV ONE (17:03)
[2025-02-05] MEDS ORDERED: GLUCOSE 4 GM CHEW PO PRN (17:45)
[2025-02-05] MEDS ORDERED: GLUCAGON INJ 1 MG VIAL SC PRN (17:45)
[2025-02-05] MEDS ORDERED: DEXTROSE 50% 50 ML SYRINGE IV PRN (17:45)
[2025-02-05] MEDS ORDERED: CETI-25 PO (18:02)
[2025-02-05] MEDS ORDERED: REST0.05 OD (18:02)
[2025-02-05] MEDS: INSULIN LISPRO (NovoLOG) PER UNIT SC SCH ×2 (18:04→21:00)
[2025-02-05] MEDS ORDERED: HOME MED LIST COMPLETE! XX SCH (18:05)
[2025-02-05] MEDS ORDERED: ISOVUE-370 76% 100 ML VIAL As Ordered ONE (18:13)
[2025-02-05] MEDS: cefTRIAXone SOD 1 GM in DEXTROSE 5% (D5W) ADV/MINI-BAG 50 ML IV SCH (18:57)
[2025-02-05] MEDS: MAG SULF 1GM/100ML (MAG RUN) 1 GM in IV 1 EA IV SCH (18:57)
[2025-02-05] MEDS ORDERED: HEPARIN SOD 5000 UNITS/ML 1 ML VIAL/SYRINGE IV PRN (19:10)
[2025-02-05] MEDS: BUDESONIDE 0.5 MG/2 ML INHALATION SUSPENSION NEB SCH (20:14)
[2025-02-05] MEDS: IPRATROPIUM 0.5 MG/ALBUTEROL 2.5 MG INH SOL UD 3 ML NEB SCH (20:14)
[2025-02-05] MEDS: LR 1,000 ML IV ONE (20:33)
[2025-02-05 20:41] VITALS: BP 117/68; TEMP 97.2; O2SAT 93
[2025-02-05] MEDS: DOXYCYCLINE HYCLATE 100 MG TABLET PO SCH (21:00)
[2025-02-05] MEDS: OLANZapine 10 MG TAB PO SCH (21:00)
[2025-02-05] MEDS: HEPARIN SOD 5000 UNITS/ML 1 ML VIAL/SYRINGE IV ONE (21:25)
[2025-02-05] MEDS: HEPARIN DRIP 25,000 UNITS in IV 1 EA IV SCH (21:34)
[2025-02-06 03:20] VITALS: BP 102/50; TEMP 97.7; O2SAT 96
[2025-02-06] MEDS: LEVOTHYROXINE 50 MCG TABLET (0.05 MG) PO SCH (06:00)
[2025-02-06] MEDS: TIOTROPIUM BROM 2.5MCG/ACTUATION 4GM INH INH SCH (07:23)
[2025-02-06 08:35] LABS: PLATELET COUNT, AUTOMATED 287 10^3/uL (150-450)
[2025-02-06] MEDS ORDERED: ENOXAPARIN 40 MG/0.4 ML SYRINGE (J1650 PER 10MG) SC SCH (09:00)
[2025-02-06 09:05] LABS: CALCIUM LEVEL 8.5 MG/DL (8.3-10.6); CARBON DIOXIDE LEVEL 23.0 MMOL/L (20-31); CHLORIDE LEVEL 106.0 MMOL/L (98-107); CREATININE FOR GFR 1.03 MG/DL (0.70-1.30); GLOMERULAR FILTRATION RATE 70.7 (>35); MAGNESIUM LEVEL 2.0 MG/DL (1.8-2.4); POTASSIUM SERUM 4.7 MMOL/L (3.5-5.1); SODIUM LEVEL 140.0 MMOL/L (136-145)
[2025-02-06] MEDS: ATORVASTATIN 20 MG TAB PO SCH (09:14)
[2025-02-06] MEDS: TAMSULOSIN 0.4 MG CAP PO SCH (09:14)
[2025-02-06] MEDS: AZITHROMYCIN 250 MG TABLET PO SCH (09:15)
[2025-02-06] MEDS: OMEPRAZOLE 20MG CAP PO SCH (09:15)
[2025-02-06] MEDS: FINASTERIDE 5 MG TAB PO SCH (09:15)
[2025-02-06] MEDS: CETIRIZINE 10 MG TAB PO SCH (09:16)
[2025-02-06] MEDS: SENNOSIDES/DOCUSATE SODIUM 8.6 MG/50MG TAB PO SCH (11:20)
[2025-02-06 12:00] VITALS: BP 102/52; TEMP 97.2; O2SAT 95
[2025-02-06] MEDS: ENOXAPARIN 80 MG/0.8 ML SYRINGE (J1650 PER 10MG) SC ONE (12:50)
[2025-02-06] MEDS: MORPHINE 10 MG/0.5 ML ORAL CONCENTRATE SOLUTION U/D SL PRN (16:00)
[2025-02-06 20:14] VITALS: BP 90/50; TEMP 97.5; O2SAT 98
[2025-02-06] MEDS: LanTUS (INSULIN GLARGINE INJ) 1 UNITS/0.01 ML SC SCH (20:14)
[2025-02-06] MEDS: ENOXAPARIN 80 MG/0.8 ML SYRINGE (J1650 PER 10MG) SC SCH (21:02)
[2025-02-06] MEDS: traZODone 25MG PER 1/2 TABLET PO ONE (22:39)
[2025-02-07 04:05] VITALS: BP 135/76; TEMP 97.9; O2SAT 94
[2025-02-07 07:23] LABS: BASO # 0.0 10^3/uL (0.0-0.2); BASO % 0.1 % (0.0-1.0); EOS # 0.0 10^3/uL (0.0-0.5); EOS % 0.0 % (0.0-3.0); LYMPH # 0.8 10^3/uL (1.5-5.0); LYMPH % 4.7 % (24.0-44.0); MONO # 0.5 10^3/uL (0.0-0.8); MONO % 3.3 % (2.0-8.0); NEUTROPHILS # 15.1 10^3/uL (1.5-8.5); NEUTROPHILS % 90.9 % (36.0-66.0); PLATELET COUNT, AUTOMATED 317 10^3/uL (150-450)
[2025-02-07 07:56] LABS: CALCIUM LEVEL 8.7 MG/DL (8.3-10.6); CARBON DIOXIDE LEVEL 27.0 MMOL/L (20-31); CHLORIDE LEVEL 106.0 MMOL/L (98-107); CREATININE FOR GFR 1.29 MG/DL (0.70-1.30); GLOMERULAR FILTRATION RATE 54.0 (>35); POTASSIUM SERUM 5.8 MMOL/L (3.5-5.1); SODIUM LEVEL 140.0 MMOL/L (136-145)
[2025-02-07] MEDS: SODIUM CHLORIDE 0.9% 1000 ML IV SCH (08:50)
[2025-02-07] MEDS: ALBUTEROL SULFATE 2.5 MG/0.5 ML INH CONCENTRATE NEB SOLN NEB SCH (08:56)
[2025-02-07] MEDS: DEXTROSE 50% 50 ML SYRINGE IV STA (09:05)
[2025-02-07] MEDS: HumuLIN R (REGULAR) INSULIN (NovoLIN R) **100 U/ML** PER UNIT IV STA (09:05)
[2025-02-07] MEDS: PATIROMER SORBITEX CALCIUM 8.4GM POWDER PACKET PO ONE (09:07)
[2025-02-07 12:00] VITALS: BP 101/55; TEMP 97.7; O2SAT 96
[2025-02-07] MEDS: MORPHINE 10 MG/0.5 ML ORAL CONCENTRATE SOLUTION U/D SL PRN (19:08)
[2025-02-07 19:46] VITALS: BP 123/67; TEMP 97.9; O2SAT 95
[2025-02-07] MEDS: RAMELTEON 8 MG TAB PO PRN (21:37)
[2025-02-07] MEDS: LanTUS (INSULIN GLARGINE INJ) 1 UNITS/0.01 ML SC SCH (21:37)
[2025-02-08 06:00] VITALS: BP 119/68; TEMP 97.9; O2SAT 95
[2025-02-08 06:42] LABS: BASO # 0.0 10^3/uL (0.0-0.2); BASO % 0.1 % (0.0-1.0); EOS # 0.0 10^3/uL (0.0-0.5); EOS % 0.0 % (0.0-3.0); LYMPH # 0.9 10^3/uL (1.5-5.0); LYMPH % 5.2 % (24.0-44.0); MONO # 0.7 10^3/uL (0.0-0.8); MONO % 4.3 % (2.0-8.0); NEUTROPHILS # 14.6 10^3/uL (1.5-8.5); NEUTROPHILS % 89.4 % (36.0-66.0); PLATELET COUNT, AUTOMATED 302 10^3/uL (150-450)
[2025-02-08 07:18] LABS: CALCIUM LEVEL 8.5 MG/DL (8.3-10.6); CARBON DIOXIDE LEVEL 26.0 MMOL/L (20-31); CHLORIDE LEVEL 107.0 MMOL/L (98-107); CREATININE FOR GFR 1.12 MG/DL (0.70-1.30); GLOMERULAR FILTRATION RATE 64.0 (>35); POTASSIUM SERUM 5.5 MMOL/L (3.5-5.1); SODIUM LEVEL 140.0 MMOL/L (136-145)
[2025-02-08] MEDS: BISACODYL 10 MG SUPP PR PRN (09:17)
[2025-02-08] MEDS ORDERED: LORazepam 1 MG TAB PO PRN (12:25)
[2025-02-08] MEDS ORDERED: POLYVINYL ALCOHOL OPHTH SOLN 15ML (LIQUITEARS) OU PRN (12:25)
[2025-02-08] MEDS ORDERED: HYOSCYAMINE SULFATE 0.125 MG SUBL TABLET SL PRN (12:25)
[2025-02-08] MEDS ORDERED: ATROPINE SULFATE 1% OPHTH SOLN 2 ML BTL SL PRN (12:25)
[2025-02-08] MEDS: MIRALAX *UNIT DOSE* 17 GM PACKET PO PRN (12:25)
[2025-02-08] MEDS ORDERED: SALIVA SUBSTITUTE BTL MT PRN (12:25)
[2025-02-08] MEDS: MIRALAX *UNIT DOSE* 17 GM PACKET PO SCH (12:47)
[2025-02-08] MEDS: MORPHINE 10 MG/0.5 ML ORAL CONCENTRATE SOLUTION U/D SL SCH (13:00)
[2025-02-08] MEDS: METHYLNALTREXONE BROMIDE 12 MG/0.6 ML VIAL SC ONE (14:45)
[2025-02-08] MEDS: MORPHINE 10 MG/0.5 ML ORAL CONCENTRATE SOLUTION U/D SL PRN (14:45)
[2025-02-08] MEDS: LORazepam 1 MG TAB PO SCH (14:47)
[2025-02-08] MEDS: LACTULOSE 20 GM/30 ML SYRUP UDC PO SCH (21:16)
[2025-02-08] MEDS: predniSONE 20 MG TAB PO SCH (21:17)
[2025-02-08] MEDS: APIXABAN 5 MG TAB PO SCH (21:17)
[2025-02-09] MEDS: LEVOTHYROXINE 50 MCG TABLET (0.05 MG) PO SCH (08:39)
[2025-02-09] MEDS: MORPHINE 10 MG/0.5 ML ORAL CONCENTRATE SOLUTION U/D SL PRN (11:19)
[2025-02-09] MEDS: ONDANSETRON 4MG ORAL DISINTEGRATING TAB PO PRN (20:33)
[2025-02-10] MEDS: LORazepam 0.5 MG TAB PO PRN (01:00)
[2025-02-10] MEDS: MORPHINE 10 MG/0.5 ML ORAL CONCENTRATE SOLUTION U/D SL SCH (13:07)
[2025-02-10] MEDS: LORazepam 1 MG TAB PO SCH (20:11)
[2025-02-12] MEDS ORDERED: LACTULOSE 20 GM/30 ML SYRUP UDC PO PRN (18:15)
[2025-02-12] MEDS ORDERED: MIRALAX *UNIT DOSE* 17 GM PACKET PO PRN (18:15)
[2025-02-12] MEDS ORDERED: SENNOSIDES/DOCUSATE SODIUM 8.6 MG/50MG TAB PO PRN (18:15)
[2025-02-12] MEDS: MORPHINE 10 MG/0.5 ML ORAL CONCENTRATE SOLUTION U/D SL SCH (23:50)
[2025-02-13] MEDS: FINASTERIDE 5 MG TAB PO SCH (08:54)
[2025-02-13] MEDS: TAMSULOSIN 0.4 MG CAP PO SCH (08:54)
[2025-02-13] MEDS ORDERED: IPRATROPIUM 0.5 MG/ALBUTEROL 2.5 MG INH SOL UD 3 ML NEB PRN (11:15)
[2025-02-13] MEDS: VIBEGRON 75 MG PO SCH (17:06)
[2025-02-13] MEDS: APIXABAN 5 MG TAB PO SCH (20:10)
[2025-02-16] MEDS: predniSONE 20 MG TAB PO SCH (08:46)
[2025-02-16] MEDS ORDERED: ELIQ5TAB PO (09:42)
[2025-02-16] MEDS ORDERED: MORP1SOL5 PO (09:42)
[2025-02-16] MEDS ORDERED: HYOS125TA PO (09:42)
[2025-02-16] MEDS ORDERED: ATIV1TAB10 PO (09:42)
[2025-02-16] MEDS ORDERED: PRED10TA2 PO (09:45)
== END 2025-02-16 12:44 | disposition hospice, home (50) | DRG 190 ==
LOC: M ED 13:09 → M ED INP 17:34 → M MSPAV 20:41
PROVIDERS: ADMIT Internal Medicine; ATTEND Internal Medicine Nephrology
DX: J44.1 Chronic obstructive pulmonary disease with (acute) exacerbation (principal); I26.99 Other pulmonary embolism without acute cor pulmonale; C78.01 Secondary malignant neoplasm of right lung; I82.412 Acute embolism and thrombosis of left femoral vein; E11.22 Type 2 diabetes mellitus with diabetic chronic kidney disease; J43.9 Emphysema, unspecified; E03.9 Hypothyroidism, unspecified; I71.20 Thoracic aortic aneurysm, without rupture, unspecified; D63.8 Anemia in other chronic diseases classified elsewhere; E78.5 Hyperlipidemia, unspecified; N40.0 Benign prostatic hyperplasia without lower urinary tract symptoms; E83.42 Hypomagnesemia; K21.9 Gastro-esophageal reflux disease without esophagitis; E87.5 Hyperkalemia; R54 Age-related physical debility; N18.9 Chronic kidney disease, unspecified; Z92.21 Personal history of antineoplastic chemotherapy; Z92.25 Personal history of immunosuppression therapy; Z79.899 Other long term (current) drug therapy; I71.9 Aortic aneurysm of unspecified site, without rupture; Z51.5 Encounter for palliative care; Z66 Do not resuscitate